=== PATIENT | female | born 1975 | race Caucasian/White ===

== ENCOUNTER 2017-05-28 09:22 | Day surgery (SDC) | payer BC ==
[2017-05-25 09:29] LABS: HEMOGLOBIN 12.3 g/dL (12-16); MCH 26.8 pg (26.0-34.0); MCHC 31.5 g/dL (31.0-37.0); MEAN PLATELET VOLUME 10.6 fL (7.4-10.4); RBC 4.59 10x6/uL (4.00-5.40); RDW 13.3 % (11.5-14.5)
[~2017-05-28] VITALS: Ht 157.5 cm; Wt 103.9 kg
--- NOTE | ~2017-05-28 | OP ---
PATIENT NAME: KILEY MCKINNEY MEDICAL RECORD: [id number] :71 LOCATION:D.OPS ADMISSION DATE: SURGEON: TRISTIAN GÓMEZ MD DATE OF OPERATION: 05/28/2017 PREOPERATIVE DIAGNOSIS: Symptomatic gallstones. POSTOPERATIVE DIAGNOSIS: Symptomatic gallstones with hepatomegaly. PROCEDURES: 1. Laparoscopic cholecystectomy. 2. Intraoperative cholangiography without immediate surgeon interpretation. 3. An 18-gauge core needle liver biopsy. SURGEON: Tristian Gómez MD CONSULTING SERVICES ASSOCIATE: None. BLOOD LOSS: Minimal. ANESTHESIA: General. COMPLICATIONS: None. The risks, possible complications, and alternatives to the procedure were discussed with the patient. She elects to proceed. The indication for the liver biopsy was hepatomegaly. OPERATIVE COURSE: The patient was conveyed to the operating room electively on 05/28/2017. General anesthesia was induced by the anesthesia staff. The abdomen was sterilely prepped and draped. A small skin andres was accomplished in the left upper quadrant. A Veress needle was inserted through the skin andres into the peritoneal cavity. CO2 insufflation was begun. Once a sufficient pneumoperitoneum had been achieved, a 5-mm trocar was inserted through an incision in the right upper quadrant. Under direct internal vision utilizing a television camera, a 12-mm trocar was inserted through an incision at the umbilicus. Another 5-mm trocar was inserted through an incision in the epigastrium. Another 5-mm trocar was inserted through an incision far laterally in the right upper quadrant. During insertion of the Veress needle and all trocars, there appeared to have been no injury to the bowels, any intraperitoneal or retroperitoneal structures. Under laparoscopic guidance, I percutaneously accessed the right upper quadrant utilizing an 18-gauge core needle liver biopsy device. Cores were obtained over the convexity of the liver. The biopsy sites were made hemostatic with electrocautery. I then advanced a cholangiogram trocar. I punctured the fundus of the gallbladder. I aspirated bile. I then injected dye. Under real time fluoroscopy, static images were obtained. These cholangiographic images are sent to the radiologist for interpretation. The cholangiogram trocar was removed. The gallbladder was grasped and retracted cephalad. The infundibulum was grasped and retracted laterally. Blunt dissection was begun in the triangle of Calot. One cystic artery and one cystic duct were identified. These were OPERATIVE REPORT [id number] KILEY MCKINNEY clipped multiply and divided between clips. The gallbladder was then excised from its bed in the liver. It was placed within a bag retrieval device and was withdrawn through the umbilical fascial defect. The 12-mm trocar was replaced and the abdomen reinsufflated. I irrigated and aspirated in the right upper quadrant. There was no bleeding even at low pressure of 8. The Sage-Mansoor suture closure device and a 0 Vicryl suture were used to close the umbilical fascia defect. All the trocars were removed and the abdomen desufflated. The skin at the umbilicus was closed with interrupted 4-0 Vicryl Rapide sutures. The other skin incisions were closed with interrupted intracuticular 3-0 Vicryls. Benzoin and Steri-Strips were applied. The patient was then extubated and conveyed to post-anesthesia care unit where she was in stable condition. She will be dismissed home with [place] for pain. I will see her in the office in 2 to 3 weeks. TRANSINT:[id number] Voice Confirmation ID: [id number] DOCUMENT ID: [id number] TRISTIAN GÓMEZ MD at 0938 CC: [id number] DICTATION DATE: 05/28/17 1524 INTERVENTIONAL RADIOLOGY RN: 05/28/17 1823 [facility] 05/28/17 [facility] [address] [place] [address]
--- NOTE | ~2017-05-28 | HP ---
PATIENT: KILEY MCKINNEY MEDICAL RECORD: [id number] ACCOUNT: [id number] LOCATION:[facility] : 71 ADMISSION DATE: 05/28/17 HISTORY AND PHYSICAL EXAMINATION CHIEF COMPLAINT: Pain. HISTORY OF PRESENT ILLNESS: The patient has been having epigastric and right upper quadrant pain. Sometimes it radiates to the back. It may be associated with food intake. She has had nausea. No vomiting. She does have bloating. Some diarrhea as well. An ultrasound of the abdomen revealed gallstones. I am going to plan for laparoscopic cholecystectomy, intraoperative cholangiography, and possible liver biopsy. MEDICATIONS: Please see the nursing list. ALLERGIES: No known drug allergies. PAST MEDICAL AND SURGICAL HISTORY: C-sections times 3, endometrial ablation, tympanoplasty. REVIEW OF SYSTEMS: No heart problems or high blood pressure. No fainting or seizures. No rheumatic fever. No diabetes, no thyroid problems. No lung problems. She is currently not short of breath. SOCIAL HISTORY: Nonsmoker. PHYSICAL EXAMINATION: GENERAL: The patient does not appear acutely ill. She does not appear chronically ill. VITAL SIGNS: Reviewed. EARS: External ears appear normal. EYES: Extraocular movements are intact. NECK: Trachea is midline. CHEST: No intercostal retractions. PULMONARY: Nonlabored, no stridor. ABDOMEN: Nontender. IMPRESSION: Symptomatic gallstones. PLAN: Laparoscopic cholecystectomy, intraoperative cholangiography, possible liver biopsy. TRANSINT:[id number] Voice Confirmation ID: [id number] DOCUMENT ID: [id number] HISTORY AND PHYSICAL [id number] SOFIAIMANI GARCIATRISTIAN LIZARRAGA MD at 0938 CC: [id number] DICTATION DATE: 05/28/17 1520 CUSTOMER CARE VOICE CONSULTANT: 05/28/[address] [facility] 05/28/17 [facility] [address] [place] [address]
[2017-05-28] MEDS ORDERED: EXCEDRIN CAPLET1 TAB PO (11:35)
[2017-05-28 11:43] VITALS: BP 119/69; Ht 157.5 cm; Wt 103.9 kg
== END 2017-05-28 18:00 | disposition home or self-care (01) ==
LOC: D.OPS 09:22 → D.PAN 13:00 → D.OPS 13:00
PROVIDERS: Anesthesiology
DX: K80.80 Other cholelithiasis without obstruction (principal); R16.0 Hepatomegaly, not elsewhere classified; E66.01 Morbid (severe) obesity due to excess calories; Z68.41 Body mass index [BMI] 40.0-44.9, adult; Z01.812 Encounter for preprocedural laboratory examination